=== PATIENT | female | born 1995 | race Caucasian/White ===

== ENCOUNTER 2018-09-23 03:08 | Emergency (ER) | payer OTHER ==
[~2018-09-23] VITALS: Ht 165.1 cm; Wt 65.5 kg
--- NOTE | 2018-09-23 03:15 | NUR ---
PT BROUGHT SELF IN TONIGHT BECAUSE "SHE HAS JUST BEEN HAVING A HARD TIME WITH LIFE AND SHE JUST DOESN'T FEEL LIKE LIVING ANYMORE." PT DOES ADMIT TO DRINKING ALCOHOL TONIGHT. PT COOPERATIVE AND URINE SAMPLE COLLECTED. BELONGINGS PLACED IN 2 BAGS AND PLACED IN LOCKER.
[2018-09-23 04:19] LABS: ALBUMIN 4.1 g/dL (3.4-5.0); ANION GAP 6 mmol/L (5-15); CALCIUM 8.5 mg/dL (8.5-10.1); CHLORIDE 112 mmol/L (98-107); CREATININE 0.89 mg/dL (0.55-1.02)
[2018-09-23 04:20] LABS: ACETAMINOPHEN < 2 mcg/mL (10-30); SALICYLATE LEVEL < 1.7 mg/dL (2.8-20.0)
[2018-09-23 04:21] LABS: BASOPHILS # (AUTO) 0.04 x10^3/uL (0-0.1); BASOPHILS % (AUTO) 1 % (0-1); EOSINOPHILS # (AUTO) 0.05 x10^3/uL (0-0.4); EOSINOPHILS % (AUTO) 1 % (1-7); LYMPHOCYTES # (AUTO) 2.76 x10^3/uL (1-3.4); LYMPHOCYTES % (AUTO) 52 % (22-44); MD NO; MEAN CORPUSCULAR HEMOGLOBIN 31.8 pg (27.0-34.8); MEAN CORPUSCULAR HGB CONC 34.4 g/dL (32.4-35.8); MEAN CORPUSCULAR VOLUME 92.4 fL (80-100); MONOCYTES # (AUTO) 0.29 x10^3/uL (0.2-0.8); MONOCYTES % (AUTO) 5 % (2-9); NEUTROPHILS # (AUTO) 2.21 x10^3/uL (1.8-6.8); NEUTROPHILS % (AUTO) 41 % (42-75); PLATELET COUNT 291 x10^3/uL (130-400); RED BLOOD COUNT 4.29 x10^6/uL (3.82-5.3); RED CELL DISTRIBUTION WIDTH 13.1 % (9.6-15.2)
[2018-09-23 04:21] LABS: AMPHETAMINE SCREEN, URINE Negative (Negative); BARBITURATE SCREEN, URINE Negative (Negative); BENZODIAZEPINE SCREEN, URINE Negative (Negative); CANNABINOID SCREEN, URINE Positive (Negative); COCAINE SCREEN, URINE Negative (Negative); METHADONE SCREEN, URINE Negative (Negative); OPIATE SCREEN, URINE Negative (Negative)
--- NOTE | 2018-09-23 04:48 | NUR ---
PT ASKING IF SINCE SHE BROUGHT HERSELF IN, IF SHE CAN SIGN HERSELF OUT. EXPLAINED TO HER ABOUT HOW WE ARE WORKING FOR HER TO SPEAK WITH A PSYCHIATRIST ONCE HER BLOOD ALCOHOL LEVEL IS BELOW 0.08. VERBALIZES UNDERSTANDING. PT ADMITS TO BANGING HEAD AGAINST THE WALL TONIGHT AND SCRATCHING AT FOREARMS FOR SUICIDE ATTEMPTS.
--- NOTE | 2018-09-23 06:15 | NUR ---
PT SLEEPING. VSS. SITTER AT BEDSIDE.
--- NOTE | 2018-09-23 06:58 | NUR ---
REPORT TO PAT HARDING.
--- NOTE | 2018-09-23 06:59 | NUR ---
RECEIVED REPORT FROM MAGEN HARDING. PT SLEEPING ON GURNEY, NAD WITH EQUAL CHEST RISE/FALL, NO NEEDS AT THIS TIME, PT REMAINS IN SAFE ENVIRONMENT, SITTER IN VIEW.
--- NOTE | 2018-09-23 08:01 | NUR ---
PT UP TO BR STEADILY, BACK TO GARY RESTING CALMLY WITH TV ON, CONTNIUES TO STATE SHE WANTS TO LEAVE BUT VERBALIZES UNDERSTANDING OF NEED FOR TELEPSYCH CONSULT, OCCAS TEARFUL BUT RESPONDS APPROP TO STAFF, NAD, COMFORT MEASURES PROVIDED, PT REMAINS IN SAFE ENVIRONMENT, SITTER IN VIEW.
[2018-09-23 08:28] VITALS: BP 119/83
--- NOTE | 2018-09-23 08:30 | NUR ---
BREAKFAST TRAY GIVEN
--- NOTE | 2018-09-23 09:00 | NUR ---
PT SITTING ON GURNEY AWAKE, CALM & COOPERATIVE WITH TV ON, PT ATE 90% OF BREAKFAST, RESPONDS APPROP TO STAFF, NAD, COMFORT MEASURES PROVIDED, PT REMAINS IN SAFE ENVIRONMENT, SITTER IN VIEW.
[2018-09-23] MEDS ORDERED: BACITRACIN ZINC OINT 500U/GM, 0.9 GM ONE (09:26)
[2018-09-23] MEDS ORDERED: BACITRACIN OINT 500U/GM, 15 GM TP SCH (09:30)
--- NOTE | 2018-09-23 09:40 | NUR ---
soc called for consult
--- NOTE | 2018-09-23 09:46 | NUR ---
TELEMONITOR IN PLACE.
--- NOTE | 2018-09-23 10:02 | NUR ---
PT SITTING ON GURNEY AWAKE, CALM & COOPERATIVE WITH TV ON, AWAITING SOC CONSULT ON TELEMONITOR, RESPONDS APPROP TO STAFF, NAD, COMFORT MEASURES PROVIDED, PT REMAINS IN SAFE ENVIRONMENT, SITTER IN VIEW.
--- NOTE | 2018-09-23 10:07 | NUR ---
REPORT GIVEN TO SOC (DR SCHMITT).
--- NOTE | 2018-09-23 10:16 | NUR ---
TELEPSYCH CONSULT IN PROCESS
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
--- NOTE | 2018-09-23 10:59 | NUR ---
Patient given discharge instructions and they have confirmed that they understand the instructions. Patient ambulatory with steady gait.
== END 2018-09-23 11:01 | disposition home or self-care (01) ==
LOC: ED 04:06
DX: R45.851 Suicidal ideations (principal); F10.220 Alcohol dependence with intoxication, uncomplicated
CPT/HCPCS: 36415; 80048; 80307; 80329; 82040; 84703; 85025; 99284; G0480